=== PATIENT | male | born 1985 | race Caucasian/White ===

== ENCOUNTER 2018-01-10 15:08 | Emergency (ER) | payer SELFPAY ==
[~2018-01-10] VITALS: Ht 172.7 cm; Wt 90.9 kg
[2018-01-10] MEDS ORDERED: METF500T6 PO (15:16)
[2018-01-10 18:18] LABS: BASOPHILS % (AUTO) 0.5 % (0.0-2.0); HEMATOCRIT 40.9 % (41-53); HEMOGLOBIN 14.6 g/dL (13.5-17.5); LYMPHOCYTES # (AUTO) 2.1 K/uL (1.0-4.8); LYMPHOCYTES % (AUTO) 22.2 % (22.0-44.0); MEAN CORPUSCULAR HGB CONC 35.7 G/dL (31.0-37.0); MEAN CORPUSCULAR VOLUME 87 fL (80-100); MONOCYTES # (AUTO) 0.7 K/uL (0.1-1.0); MONOCYTES % (AUTO) 6.9 % (2.0-9.0); NEUTROPHILS # (AUTO) 6.7 K/uL (1.8-7.7); NEUTROPHILS % (AUTO) 69.4 % (40.0-70.0); PLATELET COUNT (AUTO) 330 K/uL (150-450); RED BLOOD CELL COUNT(AUTO) 4.71 MIL/uL (4.50-5.90); RED CELL DISTRIBUTION WIDTH 12.2 % (11.5-14.5)
[2018-01-10 18:28] LABS: ANION GAP 11 mmol/L (8-16); CALCIUM, TOTAL 9.1 mg/dL (8.8-10.5); CARBON DIOXIDE 23 mmol/L (22-29); CHLORIDE 98 mmol/L (98-107); CREATININE 0.91 mg/dL (0.60-1.30); GLOMERULAR FILTR. RATE CALC > 60 mL/min (>60); GLUCOSE,RANDOM 316 mg/dL (70-110); POTASSIUM 3.7 mmol/L (3.5-5.1); SODIUM SERUM 132 mmol/L (136-145); UREA NITROGEN, BLOOD 11 mg/dL (7-18)
[2018-01-10 18:43] LABS: ALANINE AMINOTRANSFERASE 16 U/L (12-78); ALBUMIN 3.6 g/dL (3.4-5.0); ALKALINE PHOSPHATASE 142 U/L (46-116); ASPARTATE AMINOTRANSFERASE 11 U/L (15-37); BILIRUBIN,TOTAL 1.4 mg/dL (0.1-1.0); TOTAL PROTEIN, SERUM 8.7 g/dL (6.4-8.2)
[2018-01-10 19:04] LABS: GLUCOSE,POINT OF CARE 273 MG/DL (70-110)
[2018-01-10] MEDS ORDERED: SULFAMETHOX/TRIMETH DS 800-160 MG/TABLET PO ONE (19:30)
[2018-01-10] MEDS ORDERED: CEPHALEXIN MONOHYDRATE 500 MG CAPSULE PO ONE (19:30)
[2018-01-10] MEDS ORDERED: IBUPROFEN 600 MG TABLET PO ONE (19:30)
[2018-01-10 21:06] VITALS: BP 129/87
== END 2018-01-10 21:15 | disposition home or self-care (01) ==
LOC: EMS 15:11
DX: E11.621 Type 2 diabetes mellitus with foot ulcer (principal); L97.529 Non-pressure chronic ulcer of other part of left foot with unspecified severity
CPT/HCPCS: 99285

== ENCOUNTER 2018-01-22 03:55 | Inpatient (IN) | payer MEDICAID ==
[~2018-01-22] VITALS: Ht 185.4 cm; Wt 81.8 kg
[~2018-01-22 03:55] MED LIST: METF500T6 PO
[2018-01-22 04:09] LABS: GLUCOSE,POINT OF CARE 236 MG/DL (70-110)
[2018-01-22] MEDS ORDERED: VANCOMYCIN HCL 1 GM/D5% WATER 200 ML IV ONE ×2 (04:30→10:30)
[2018-01-22 04:58] LABS: BASOPHILS % (AUTO) 0.7 % (0.0-2.0); EOSINOPHILS % (AUTO) 0.2 % (1.0-6.0); HEMATOCRIT 35.9 % (41-53); HEMOGLOBIN 12.6 g/dL (13.5-17.5); LYMPHOCYTES # (AUTO) 1.7 K/uL (1.0-4.8); LYMPHOCYTES % (AUTO) 9.9 % (22.0-44.0); MEAN CORPUSCULAR HEMOGLOBIN 30.3 pg (26.0-34.0); MEAN CORPUSCULAR HGB CONC 35.1 G/dL (31.0-37.0); MEAN CORPUSCULAR VOLUME 86 fL (80-100); MONOCYTES # (AUTO) 1.3 K/uL (0.1-1.0); MONOCYTES % (AUTO) 7.6 % (2.0-9.0); NEUTROPHILS # (AUTO) 14.1 K/uL (1.8-7.7); NEUTROPHILS % (AUTO) 81.6 % (40.0-70.0); PLATELET COUNT (AUTO) 409 K/uL (150-450); RED BLOOD CELL COUNT(AUTO) 4.16 MIL/uL (4.50-5.90)
[2018-01-22 05:09] LABS: ANION GAP 15 mmol/L (8-16); CARBON DIOXIDE 19 mmol/L (22-29); CHLORIDE 97 mmol/L (98-107); CREATININE 0.81 mg/dL (0.60-1.30); GLOMERULAR FILTR. RATE CALC > 60 mL/min (>60); GLUCOSE,RANDOM 270 mg/dL (70-110); POTASSIUM 3.4 mmol/L (3.5-5.1); SODIUM SERUM 131 mmol/L (136-145); UREA NITROGEN, BLOOD 13 mg/dL (7-18)
[2018-01-22] MEDS ORDERED: ACETAMINOPHEN 325 MG TABLET PO PRN ×2 (05:15→09:45)
[2018-01-22] MEDS ORDERED: 0.9% SODIUM CHLORIDE 10 ML SYRINGE IVP PRN ×2 (05:15→09:45)
[2018-01-22] MEDS ORDERED: ONDANSETRON HCL 4 MG/2 ML VIAL IVP PRN ×2 (05:15→09:45)
[2018-01-22 05:17] LABS: LACTIC ACID 1.7 mmol/L (0.4-2.0)
[2018-01-22 05:23] LABS: ALANINE AMINOTRANSFERASE 17 U/L (12-78); ALBUMIN 2.5 g/dL (3.4-5.0); ALKALINE PHOSPHATASE 163 U/L (46-116); ASPARTATE AMINOTRANSFERASE 21 U/L (15-37); BILIRUBIN,TOTAL 0.8 mg/dL (0.1-1.0); TOTAL PROTEIN, SERUM 8.2 g/dL (6.4-8.2)
[2018-01-22 07:23] VITALS: BP 124/82
[2018-01-22] MEDS ORDERED: RINGERS SOLUTION,LACTATED 1,000 ML IV ONE ×2 (09:04→10:00)
[2018-01-22] MEDS: HEPARIN SODIUM,PORCINE 5,000 UNITS/ML VIAL SQ SCH ×3 (09:45→23:10)
[2018-01-22] MEDS ORDERED: GLUCAGON,HUMAN RECOMBINANT 1 MG VIAL IM PRN (09:45)
[2018-01-22] MEDS: PANTOPRAZOLE SODIUM 40 MG/VIAL IVP SCH (09:45)
[2018-01-22] MEDS ORDERED: OxyCODONE HCL/ACETAMINOPHEN 5-325 MG TABLET PO PRN (09:45)
[2018-01-22] MEDS ORDERED: ZOLPIDEM TARTRATE 5 MG TABLET PO PRN (09:45)
[2018-01-22] MEDS: DOCUSATE SODIUM 100 MG CAPSULE PO SCH ×2 (09:45→19:40)
[2018-01-22] MEDS ORDERED: VANCOMYCIN HCL 1.5 GM in DEXTROSE 5%-WATER 250 ML IV ONE (10:00)
[2018-01-22] MEDS ORDERED: BUPIVACAINE HCL/PF 0.5% 30 ML VIAL ONE (10:12)
[2018-01-22] MEDS ORDERED: LIDOCAINE HCL/PF 1% 2 ML VIAL ONE (10:13)
[2018-01-22] MEDS ORDERED: SODIUM CL IRRIG SOLN BAG 3,000 ML IRRIG ONE (10:13)
[2018-01-22] MEDS ORDERED: BACITRACIN 50,000 UNITS/VIAL ONE (10:14)
[2018-01-22 10:18] LABS: C-REACTIVE PROTEIN QUANT 21.64 mg/dL (0.00-0.30); CHOL/HDL RATIO 4.1 (4.2-7.3); CHOLESTEROL 123 mg/dL (131-200); HDL CHOLESTEROL 30 mg/dL (40-60); LDL CHOL (CALC.) 73 mg/dL (0-130); TRIGLYCERIDES 98 mg/dL (15-150)
[2018-01-22 10:24] LABS: HEMOGLOBIN A1C 9.7 % (4.5-6.2)
[2018-01-22 10:49] LABS: ERYTHROCYTE SEDIMENTATION RATE 115 MM/HR (0-15)
[2018-01-22] MEDS ORDERED: MIDAZOLAM HCL 2 MG/2 ML VIAL IVP ONE (12:00)
[2018-01-22] MEDS ORDERED: LIDOCAINE HCL/PF 2% 5 ML VIAL INJ ONE (12:00)
[2018-01-22] MEDS ORDERED: PROPOFOL 1% 20 ML VIAL IVP ONE (12:00)
[2018-01-22] MEDS ORDERED: THROMBIN, BOVINE 20000 UNITS/VIAL POWDER TP ONE (12:00)
[2018-01-22] MEDS ORDERED: HYDROmorphone 2 MG/ML SYRINGE IVP PRN (12:00)
[2018-01-22] MEDS ORDERED: GELATIN SPONGE,ABSORBABLE 50 MM TP ONE (12:00)
[2018-01-22] MEDS ORDERED: FentaNYL CITRATE-PF 100 MCG/2 ML VIAL IVP PRN (12:00)
[2018-01-22] MEDS ORDERED: MEPERIDINE HCL/PF 25 MG/0.5 ML AMP IVP PRN (12:00)
[2018-01-22] MEDS ORDERED: KETOROLAC TROMETHAMINE 60 MG/2 ML VIAL IM ONE (12:00)
[2018-01-22] MEDS ORDERED: OxyCODONE HCL/ACETAMINOPHEN 10-325 MG TABLET PO PRN (12:00)
[2018-01-22] MEDS ORDERED: SODIUM CHLORIDE 0.9% 500 ML IV ONE (13:48)
[2018-01-22] MEDS ORDERED: CYCLOBENZAPRINE HCL 10 MG TABLET PO PRN (14:00)
[2018-01-22] MEDS: CefTRIAXone SODIUM 1 GM in DEXTROSE 5%-WATER 10 ML IV SCH (14:34)
[2018-01-22 15:34] VITALS: BP 109/64
[2018-01-22] MEDS ORDERED: VANCOMYCIN HCL 750 MG in DEXTROSE 5%-WATER 250 ML IV ONE (17:00)
[2018-01-22] MEDS: INSULIN LISPRO 100 UNITS/ML SQ PRN ×2 (17:21→20:43)
[2018-01-22] MEDS: ACETAMINOPHEN 1000 MG/ISO-OSM 100 ML IV SCH ×2 (19:35→23:02)
[2018-01-22] MEDS: KETOROLAC TROMETHAMINE 15 MG/ML VIAL IVP SCH ×2 (19:40→23:42)
[2018-01-22 19:57] VITALS: BP 123/68
[2018-01-22 21:43] LABS: GLUCOMETER DEV NAME(LOC) 6N 2D; GLUCOSE,POINT OF CARE 274 MG/DL (70-110)
[2018-01-22 21:43] LABS: GLUCOMETER DEV NAME(LOC) 6N 2D; GLUCOSE,POINT OF CARE 177 MG/DL (70-110)
[2018-01-22] MEDS: VANCOMYCIN HCL 1.5 GM in DEXTROSE 5%-WATER 250 ML IV SCH (23:42)
[2018-01-22 23:57] VITALS: BP 116/63
[2018-01-23 04:10] VITALS: BP 115/72
[2018-01-23] MEDS: ACETAMINOPHEN 1000 MG/ISO-OSM 100 ML IV SCH ×2 (05:16→11:55)
[2018-01-23] MEDS: KETOROLAC TROMETHAMINE 15 MG/ML VIAL IVP SCH ×3 (05:16→18:07)
[2018-01-23 05:54] LABS: BASOPHILS % (AUTO) 0.5 % (0.0-2.0); EOSINOPHILS % (AUTO) 2.7 % (1.0-6.0); HEMATOCRIT 34.7 % (41-53); HEMOGLOBIN 11.9 g/dL (13.5-17.5); LYMPHOCYTES # (AUTO) 1.4 K/uL (1.0-4.8); LYMPHOCYTES % (AUTO) 11.7 % (22.0-44.0); MEAN CORPUSCULAR HEMOGLOBIN 30.2 pg (26.0-34.0); MEAN CORPUSCULAR HGB CONC 34.2 G/dL (31.0-37.0); MEAN CORPUSCULAR VOLUME 88 fL (80-100); MONOCYTES # (AUTO) 0.9 K/uL (0.1-1.0); MONOCYTES % (AUTO) 7.9 % (2.0-9.0); NEUTROPHILS % (AUTO) 77.2 % (40.0-70.0); PLATELET COUNT (AUTO) 363 K/uL (150-450); RED BLOOD CELL COUNT(AUTO) 3.93 MIL/uL (4.50-5.90); RED CELL DISTRIBUTION WIDTH 11.8 % (11.5-14.5)
[2018-01-23] MEDS: INSULIN LISPRO 100 UNITS/ML SQ PRN ×4 (05:58→21:39)
[2018-01-23 06:16] LABS: ANION GAP 9 mmol/L (8-16); CALCIUM, TOTAL 8.8 mg/dL (8.8-10.5); CARBON DIOXIDE 25 mmol/L (22-29); CHLORIDE 100 mmol/L (98-107); GLOMERULAR FILTR. RATE CALC > 60 mL/min (>60); GLUCOSE,RANDOM 194 mg/dL (70-110); POTASSIUM 3.6 mmol/L (3.5-5.1); SODIUM SERUM 134 mmol/L (136-145); UREA NITROGEN, BLOOD 17 mg/dL (7-18)
[2018-01-23] MEDS: VANCOMYCIN HCL 1.5 GM in DEXTROSE 5%-WATER 250 ML IV SCH ×3 (06:39→22:59)
[2018-01-23 07:03] LABS: GLUCOMETER DEV NAME(LOC) 6N 2D; GLUCOSE,POINT OF CARE 201 MG/DL (70-110)
[2018-01-23 07:41] VITALS: BP 122/69
[2018-01-23] MEDS: PANTOPRAZOLE SODIUM 40 MG/VIAL IVP SCH (08:18)
[2018-01-23] MEDS: DOCUSATE SODIUM 100 MG CAPSULE PO SCH ×2 (08:18→19:57)
[2018-01-23] MEDS: HEPARIN SODIUM,PORCINE 5,000 UNITS/ML VIAL SQ SCH ×2 (08:18→18:07)
[2018-01-23 11:32] VITALS: BP 131/79
[2018-01-23 11:54] LABS: GLUCOMETER DEV NAME(LOC) 6N 1E; GLUCOSE,POINT OF CARE 242 MG/DL (70-110)
[2018-01-23] MEDS: CefTRIAXone SODIUM 1 GM in DEXTROSE 5%-WATER 10 ML IV SCH (15:18)
[2018-01-23 15:43] VITALS: BP 126/77
[2018-01-23 19:00] VITALS: BP 123/76
[2018-01-23 19:34] LABS: GLUCOMETER DEV NAME(LOC) 6N 2D; GLUCOSE,POINT OF CARE 200 MG/DL (70-110)
[2018-01-23] MEDS: ACETAMINOPHEN 325 MG TABLET PO PRN (19:59)
[2018-01-23 20:58] LABS: GLUCOMETER DEV NAME(LOC) 6N 2D; GLUCOSE,POINT OF CARE 305 MG/DL (70-110)
[2018-01-23 23:49] VITALS: BP 138/83
[2018-01-24] MEDS: KETOROLAC TROMETHAMINE 15 MG/ML VIAL IVP SCH ×5 (00:19→23:36)
[2018-01-24] MEDS: HEPARIN SODIUM,PORCINE 5,000 UNITS/ML VIAL SQ SCH ×4 (00:20→23:36)
[2018-01-24 04:00] VITALS: BP 129/79
[2018-01-24] MEDS: VANCOMYCIN HCL 1.5 GM in DEXTROSE 5%-WATER 250 ML IV SCH ×3 (06:06→22:32)
[2018-01-24] MEDS: INSULIN LISPRO 100 UNITS/ML SQ PRN ×4 (06:07→21:04)
[2018-01-24 06:34] LABS: GLUCOMETER DEV NAME(LOC) 6N 1E; GLUCOSE,POINT OF CARE 189 MG/DL (70-110)
[2018-01-24 07:20] LABS: ANION GAP 9 mmol/L (8-16); CALCIUM, TOTAL 8.4 mg/dL (8.8-10.5); CARBON DIOXIDE 26 mmol/L (22-29); CHLORIDE 101 mmol/L (98-107); GLOMERULAR FILTR. RATE CALC > 60 mL/min (>60); GLUCOSE,RANDOM 207 mg/dL (70-110); POTASSIUM 3.9 mmol/L (3.5-5.1); SODIUM SERUM 136 mmol/L (136-145); UREA NITROGEN, BLOOD 9 mg/dL (7-18); VANCOMYCIN,RANDOM 14.9 mcg/mL (25.0-50.0)
[2018-01-24 07:30] VITALS: BP 127/78
[2018-01-24] MEDS ORDERED: SODIUM CHLORIDE 0.9% 500 ML IV ONE (08:27)
[2018-01-24] MEDS: DOCUSATE SODIUM 100 MG CAPSULE PO SCH ×2 (08:33→19:57)
[2018-01-24] MEDS: PANTOPRAZOLE SODIUM 40 MG/VIAL IVP SCH (08:33)
[2018-01-24 11:50] VITALS: BP 132/78
[2018-01-24 13:23] LABS: GLUCOMETER DEV NAME(LOC) 6N 2D; GLUCOSE,POINT OF CARE 199 MG/DL (70-110)
[2018-01-24] MEDS: CefTRIAXone SODIUM 1 GM in DEXTROSE 5%-WATER 10 ML IV SCH (14:26)
[2018-01-24 15:59] VITALS: BP 128/77
[2018-01-24 17:49] LABS: GLUCOMETER DEV NAME(LOC) 6N 2D; GLUCOSE,POINT OF CARE 236 MG/DL (70-110)
[2018-01-24 19:47] VITALS: BP 135/75
[2018-01-24 23:19] VITALS: BP 143/83
[2018-01-25 00:24] LABS: GLUCOMETER DEV NAME(LOC) 6N 2D; GLUCOSE,POINT OF CARE 197 MG/DL (70-110)
[2018-01-25 04:37] VITALS: BP 138/80
[2018-01-25] MEDS: KETOROLAC TROMETHAMINE 15 MG/ML VIAL IVP SCH ×3 (05:42→17:16)
[2018-01-25] MEDS: INSULIN LISPRO 100 UNITS/ML SQ PRN ×4 (05:43→20:22)
[2018-01-25] MEDS: VANCOMYCIN HCL 1.5 GM in DEXTROSE 5%-WATER 250 ML IV SCH ×2 (06:36→14:38)
[2018-01-25 06:39] LABS: GLUCOMETER DEV NAME(LOC) 6N 2D; GLUCOSE,POINT OF CARE 168 MG/DL (70-110)
[2018-01-25 06:50] LABS: BASOPHILS % (AUTO) 0.5 % (0.0-2.0); EOSINOPHILS % (AUTO) 4.3 % (1.0-6.0); HEMATOCRIT 34.3 % (41-53); HEMOGLOBIN 11.8 g/dL (13.5-17.5); LYMPHOCYTES # (AUTO) 1.6 K/uL (1.0-4.8); LYMPHOCYTES % (AUTO) 18.6 % (22.0-44.0); MEAN CORPUSCULAR HEMOGLOBIN 30.2 pg (26.0-34.0); MEAN CORPUSCULAR HGB CONC 34.5 G/dL (31.0-37.0); MEAN CORPUSCULAR VOLUME 88 fL (80-100); MONOCYTES # (AUTO) 0.8 K/uL (0.1-1.0); MONOCYTES % (AUTO) 8.8 % (2.0-9.0); NEUTROPHILS % (AUTO) 67.8 % (40.0-70.0); PLATELET COUNT (AUTO) 419 K/uL (150-450); RED BLOOD CELL COUNT(AUTO) 3.92 MIL/uL (4.50-5.90); RED CELL DISTRIBUTION WIDTH 11.9 % (11.5-14.5)
[2018-01-25 07:00] LABS: VANCOMYCIN,RANDOM 13.4 mcg/mL (25.0-50.0)
[2018-01-25 07:10] VITALS: BP 122/67
[2018-01-25] MEDS: DOCUSATE SODIUM 100 MG CAPSULE PO SCH ×2 (08:28→20:22)
[2018-01-25] MEDS: HEPARIN SODIUM,PORCINE 5,000 UNITS/ML VIAL SQ SCH ×2 (08:28→15:25)
[2018-01-25] MEDS: PANTOPRAZOLE SODIUM 40 MG/VIAL IVP SCH (08:28)
[2018-01-25 09:18] LABS: ANION GAP 10 mmol/L (8-16); CALCIUM, TOTAL 8.7 mg/dL (8.8-10.5); CARBON DIOXIDE 25 mmol/L (22-29); CHLORIDE 100 mmol/L (98-107); CREATININE 0.64 mg/dL (0.60-1.30); GLOMERULAR FILTR. RATE CALC > 60 mL/min (>60); GLUCOSE,RANDOM 169 mg/dL (70-110); SODIUM SERUM 135 mmol/L (136-145); UREA NITROGEN, BLOOD 10 mg/dL (7-18)
[2018-01-25] MEDS ORDERED: SODIUM CHLORIDE 0.9% 500 ML IV ONE (10:35)
[2018-01-25] MEDS ORDERED: SODIUM CL IRRIG SOLN BOTTLE 250 ML IRRIG ONE (10:35)
[2018-01-25 11:39] VITALS: BP 143/83
[2018-01-25 11:58] LABS: GLUCOMETER DEV NAME(LOC) 6N 1E; GLUCOSE,POINT OF CARE 231 MG/DL (70-110)
[2018-01-25] MEDS: CefTRIAXone SODIUM 1 GM in DEXTROSE 5%-WATER 10 ML IV SCH (14:38)
[2018-01-25 15:20] VITALS: BP 147/88
[2018-01-25] MEDS: ACETAMINOPHEN 325 MG TABLET PO PRN (15:25)
[2018-01-25 19:57] VITALS: BP 131/74
[2018-01-25 23:15] VITALS: BP 133/82
[2018-01-25 23:43] LABS: GLUCOMETER DEV NAME(LOC) 6N 2D; GLUCOSE,POINT OF CARE 229 MG/DL (70-110)
[2018-01-25 23:44] LABS: GLUCOMETER DEV NAME(LOC) 6N 2D; GLUCOSE,POINT OF CARE 230 MG/DL (70-110)
[2018-01-26] MEDS: HEPARIN SODIUM,PORCINE 5,000 UNITS/ML VIAL SQ SCH ×4 (00:09→23:59)
[2018-01-26] MEDS: KETOROLAC TROMETHAMINE 15 MG/ML VIAL IVP SCH ×2 (00:10→06:16)
[2018-01-26] MEDS: VANCOMYCIN HCL 1.5 GM in DEXTROSE 5%-WATER 250 ML IV SCH ×4 (00:10→22:56)
[2018-01-26 05:00] VITALS: BP 121/70
[2018-01-26] MEDS: INSULIN LISPRO 100 UNITS/ML SQ PRN ×4 (06:17→20:37)
[2018-01-26 06:33] LABS: ANION GAP 5 mmol/L (8-16); CALCIUM, TOTAL 8.5 mg/dL (8.8-10.5); CARBON DIOXIDE 29 mmol/L (22-29); CHLORIDE 100 mmol/L (98-107); CREATININE 0.72 mg/dL (0.60-1.30); GLOMERULAR FILTR. RATE CALC > 60 mL/min (>60); GLUCOSE,RANDOM 219 mg/dL (70-110); POTASSIUM 4.3 mmol/L (3.5-5.1); SODIUM SERUM 134 mmol/L (136-145); UREA NITROGEN, BLOOD 8 mg/dL (7-18)
[2018-01-26 06:40] LABS: GLUCOMETER DEV NAME(LOC) 6N 2D; GLUCOSE,POINT OF CARE 203 MG/DL (70-110)
[2018-01-26] MEDS: LEVOFLOXACIN 250 MG TABLET PO SCH (08:05)
[2018-01-26] MEDS: PANTOPRAZOLE SODIUM 40 MG/VIAL IVP SCH (08:05)
[2018-01-26] MEDS: DOCUSATE SODIUM 100 MG CAPSULE PO SCH ×2 (08:05→19:44)
[2018-01-26 08:07] VITALS: BP 122/70
[2018-01-26 11:56] VITALS: BP 127/75
[2018-01-26 16:00] VITALS: BP 145/84
[2018-01-26 18:54] LABS: GLUCOMETER DEV NAME(LOC) 6N 1E; GLUCOSE,POINT OF CARE 222 MG/DL (70-110)
[2018-01-26 19:48] VITALS: BP 133/80
[2018-01-26 20:10] LABS: GLUCOMETER DEV NAME(LOC) 6N 2D; GLUCOSE,POINT OF CARE 225 MG/DL (70-110)
[2018-01-26 20:40] LABS: GLUCOMETER DEV NAME(LOC) 6N 2D; GLUCOSE,POINT OF CARE 271 MG/DL (70-110)
[2018-01-26] MEDS ORDERED: SODIUM CHLORIDE 0.9% IRRIG BTL 1,000 ML IRRIG ONE (22:47)
[2018-01-26 23:33] VITALS: BP 128/73
[2018-01-27 04:33] VITALS: BP 126/67
[2018-01-27] MEDS: INSULIN LISPRO 100 UNITS/ML SQ PRN ×4 (06:33→21:46)
[2018-01-27] MEDS: VANCOMYCIN HCL 1.5 GM in DEXTROSE 5%-WATER 250 ML IV SCH ×3 (06:33→22:23)
[2018-01-27 07:13] LABS: ANION GAP 6 mmol/L (8-16); CALCIUM, TOTAL 8.9 mg/dL (8.8-10.5); CARBON DIOXIDE 29 mmol/L (22-29); CHLORIDE 99 mmol/L (98-107); CREATININE 0.82 mg/dL (0.60-1.30); GLOMERULAR FILTR. RATE CALC > 60 mL/min (>60); GLUCOSE,RANDOM 238 mg/dL (70-110); POTASSIUM 4.4 mmol/L (3.5-5.1); SODIUM SERUM 134 mmol/L (136-145); UREA NITROGEN, BLOOD 7 mg/dL (7-18)
[2018-01-27 07:36] LABS: GLUCOMETER DEV NAME(LOC) 6N 1E; GLUCOSE,POINT OF CARE 221 MG/DL (70-110)
[2018-01-27 08:17] VITALS: BP 119/78
[2018-01-27] MEDS: PANTOPRAZOLE SODIUM 40 MG/VIAL IVP SCH (08:40)
[2018-01-27] MEDS: HEPARIN SODIUM,PORCINE 5,000 UNITS/ML VIAL SQ SCH ×3 (08:40→23:49)
[2018-01-27] MEDS: DOCUSATE SODIUM 100 MG CAPSULE PO SCH ×2 (08:41→20:52)
[2018-01-27] MEDS: LEVOFLOXACIN 250 MG TABLET PO SCH (08:41)
[2018-01-27] MEDS ORDERED: SODIUM CHLORIDE 0.9% 250 ML IV ONE (08:47)
[2018-01-27 11:19] VITALS: BP 135/76
[2018-01-27] MEDS: ACETAMINOPHEN 325 MG TABLET PO PRN ×2 (11:21→20:55)
[2018-01-27 15:15] VITALS: BP 118/69
[2018-01-27 17:09] LABS: GLUCOMETER DEV NAME(LOC) 6N 2D; GLUCOSE,POINT OF CARE 228 MG/DL (70-110)
[2018-01-27 19:22] VITALS: BP 121/68
[2018-01-28 00:04] VITALS: BP 126/76
[2018-01-28 01:09] LABS: GLUCOMETER DEV NAME(LOC) 6N 2D; GLUCOSE,POINT OF CARE 259 MG/DL (70-110)
[2018-01-28 01:09] LABS: GLUCOMETER DEV NAME(LOC) 6N 2D; GLUCOSE,POINT OF CARE 257 MG/DL (70-110)
[2018-01-28 04:05] VITALS: BP 122/72
[2018-01-28] MEDS: VANCOMYCIN HCL 1.5 GM in DEXTROSE 5%-WATER 250 ML IV SCH ×3 (06:08→23:56)
[2018-01-28] MEDS: INSULIN LISPRO 100 UNITS/ML SQ PRN ×4 (06:13→20:22)
[2018-01-28 06:23] LABS: ANION GAP 4 mmol/L (8-16); CALCIUM, TOTAL 8.9 mg/dL (8.8-10.5); CARBON DIOXIDE 31 mmol/L (22-29); CHLORIDE 99 mmol/L (98-107); CREATININE 0.88 mg/dL (0.60-1.30); GLOMERULAR FILTR. RATE CALC > 60 mL/min (>60); GLUCOSE,RANDOM 243 mg/dL (70-110); POTASSIUM 4.5 mmol/L (3.5-5.1); SODIUM SERUM 134 mmol/L (136-145); UREA NITROGEN, BLOOD 9 mg/dL (7-18)
[2018-01-28 07:34] LABS: GLUCOMETER DEV NAME(LOC) 6N 1E; GLUCOSE,POINT OF CARE 226 MG/DL (70-110)
[2018-01-28 08:02] VITALS: BP 126/75
[2018-01-28] MEDS: HEPARIN SODIUM,PORCINE 5,000 UNITS/ML VIAL SQ SCH (08:11)
[2018-01-28] MEDS: DOCUSATE SODIUM 100 MG CAPSULE PO SCH ×2 (08:12→20:16)
[2018-01-28] MEDS: LEVOFLOXACIN 250 MG TABLET PO SCH (08:12)
[2018-01-28] MEDS: PANTOPRAZOLE SODIUM 40 MG/VIAL IVP SCH (08:12)
[2018-01-28 11:53] VITALS: BP 121/76
[2018-01-28 16:14] VITALS: BP 128/94
[2018-01-28 16:44] LABS: GLUCOMETER DEV NAME(LOC) 6N 2D; GLUCOSE,POINT OF CARE 266 MG/DL (70-110)
[2018-01-28] MEDS ORDERED: SODIUM CL IRRIG SOLN BOTTLE 250 ML IRRIG ONE (17:48)
[2018-01-28] MEDS: ACETAMINOPHEN 325 MG TABLET PO PRN (20:19)
[2018-01-28 20:23] VITALS: BP 125/72
[2018-01-28 20:59] LABS: GLUCOMETER DEV NAME(LOC) 6N 2D; GLUCOSE,POINT OF CARE 253 MG/DL (70-110)
[2018-01-29] VITALS (7 sets, daily range): BP systolic 102–153; BP diastolic 64–83
[2018-01-29 01:39] LABS: GLUCOMETER DEV NAME(LOC) 6N 1E; GLUCOSE,POINT OF CARE 306 MG/DL (70-110)
[2018-01-29] MEDS: VANCOMYCIN HCL 1.5 GM in DEXTROSE 5%-WATER 250 ML IV SCH ×3 (06:29→23:23)
[2018-01-29] MEDS: INSULIN LISPRO 100 UNITS/ML SQ PRN ×4 (06:31→22:11)
[2018-01-29 06:57] LABS: ANION GAP 9 mmol/L (8-16); CALCIUM, TOTAL 8.8 mg/dL (8.8-10.5); CARBON DIOXIDE 26 mmol/L (22-29); CHLORIDE 97 mmol/L (98-107); GLOMERULAR FILTR. RATE CALC > 60 mL/min (>60); GLUCOSE,RANDOM 267 mg/dL (70-110); POTASSIUM 4.1 mmol/L (3.5-5.1); SODIUM SERUM 132 mmol/L (136-145); UREA NITROGEN, BLOOD 16 mg/dL (7-18)
[2018-01-29 07:15] LABS: GLUCOMETER DEV NAME(LOC) 6N 2D; GLUCOSE,POINT OF CARE 224 MG/DL (70-110)
[2018-01-29] MEDS: DOCUSATE SODIUM 100 MG CAPSULE PO SCH ×2 (08:41→21:00)
[2018-01-29] MEDS: PANTOPRAZOLE SODIUM 40 MG/VIAL IVP SCH (08:41)
[2018-01-29] MEDS: LEVOFLOXACIN 250 MG TABLET PO SCH (08:41)
[2018-01-29 14:15] LABS: GLUCOMETER DEV NAME(LOC) 6N 2D; GLUCOSE,POINT OF CARE 279 MG/DL (70-110)
[2018-01-29] MEDS ORDERED: SODIUM CHLORIDE 0.9% 500 ML IV ONE (15:17)
[2018-01-29 23:43] LABS: GLUCOMETER DEV NAME(LOC) 6N 1E; GLUCOSE,POINT OF CARE 270 MG/DL (70-110)
[2018-01-29 23:43] LABS: GLUCOMETER DEV NAME(LOC) 6N 1E; GLUCOSE,POINT OF CARE 333 MG/DL (70-110)
[2018-01-30 04:00] VITALS: BP 106/63
[2018-01-30] MEDS: INSULIN LISPRO 100 UNITS/ML SQ PRN ×4 (05:54→21:28)
[2018-01-30] MEDS: VANCOMYCIN HCL 1.5 GM in DEXTROSE 5%-WATER 250 ML IV SCH ×2 (05:55→16:27)
[2018-01-30 07:24] LABS: GLUCOMETER DEV NAME(LOC) 6N 1E; GLUCOSE,POINT OF CARE 239 MG/DL (70-110)
[2018-01-30 07:36] LABS: ANION GAP 8 mmol/L (8-16); CALCIUM, TOTAL 8.8 mg/dL (8.8-10.5); CARBON DIOXIDE 26 mmol/L (22-29); CHLORIDE 97 mmol/L (98-107); CREATININE 0.85 mg/dL (0.60-1.30); GLOMERULAR FILTR. RATE CALC > 60 mL/min (>60); GLUCOSE,RANDOM 291 mg/dL (70-110); POTASSIUM 4.4 mmol/L (3.5-5.1); SODIUM SERUM 131 mmol/L (136-145); UREA NITROGEN, BLOOD 13 mg/dL (7-18); VANCOMYCIN,RANDOM 26.5 mcg/mL (25.0-50.0)
[2018-01-30 08:14] VITALS: BP 132/75
[2018-01-30] MEDS: PANTOPRAZOLE SODIUM 40 MG/VIAL IVP SCH (08:54)
[2018-01-30] MEDS: DOCUSATE SODIUM 100 MG CAPSULE PO SCH ×2 (08:54→21:00)
[2018-01-30] MEDS: LEVOFLOXACIN 250 MG TABLET PO SCH (08:55)
[2018-01-30 11:57] VITALS: BP 115/76
[2018-01-30 11:58] LABS: GLUCOMETER DEV NAME(LOC) 6N 1E; GLUCOSE,POINT OF CARE 271 MG/DL (70-110)
[2018-01-30] MEDS ORDERED: LEVO250 PO (14:14)
[2018-01-30 15:12] VITALS: BP 126/94
[2018-01-30] MEDS ORDERED: SODIUM CHLORIDE 0.9% IRRIG BTL 1,000 ML IRRIG ONE (15:16)
[2018-01-30 19:40] VITALS: BP 111/66
[2018-01-30 19:48] LABS: GLUCOMETER DEV NAME(LOC) 6N 1E; GLUCOSE,POINT OF CARE 256 MG/DL (70-110)
[2018-01-31 00:14] VITALS: BP 123/79
[2018-01-31] MEDS: VANCOMYCIN HCL 1.5 GM in DEXTROSE 5%-WATER 250 ML IV SCH ×3 (00:15→16:26)
[2018-01-31 04:37] VITALS: BP 106/62
[2018-01-31] MEDS: INSULIN LISPRO 100 UNITS/ML SQ PRN ×4 (05:28→22:25)
[2018-01-31 06:30] LABS: ANION GAP 7 mmol/L (8-16); CALCIUM, TOTAL 8.8 mg/dL (8.8-10.5); CARBON DIOXIDE 27 mmol/L (22-29); CHLORIDE 97 mmol/L (98-107); CREATININE 0.92 mg/dL (0.60-1.30); GLOMERULAR FILTR. RATE CALC > 60 mL/min (>60); GLUCOSE,RANDOM 298 mg/dL (70-110); POTASSIUM 4.2 mmol/L (3.5-5.1); SODIUM SERUM 131 mmol/L (136-145); UREA NITROGEN, BLOOD 12 mg/dL (7-18)
[2018-01-31 07:10] VITALS: BP 106/62
[2018-01-31] MEDS: PANTOPRAZOLE SODIUM 40 MG/VIAL IVP SCH (08:54)
[2018-01-31] MEDS: LEVOFLOXACIN 250 MG TABLET PO SCH (08:54)
[2018-01-31] MEDS: DOCUSATE SODIUM 100 MG CAPSULE PO SCH ×2 (08:55→21:00)
[2018-01-31 11:44] VITALS: BP 110/65
[2018-01-31 12:28] LABS: GLUCOMETER DEV NAME(LOC) 6N 2D; GLUCOSE,POINT OF CARE 346 MG/DL (70-110)
[2018-01-31 12:29] LABS: GLUCOMETER DEV NAME(LOC) 6N 2D; GLUCOSE,POINT OF CARE 266 MG/DL (70-110)
[2018-01-31 15:18] LABS: GLUCOMETER DEV NAME(LOC) 6N 1E; GLUCOSE,POINT OF CARE 297 MG/DL (70-110)
[2018-01-31 16:00] VITALS: BP 148/76
[2018-01-31 19:00] VITALS: BP 147/90
[2018-01-31 19:48] LABS: GLUCOMETER DEV NAME(LOC) 6N 1E; GLUCOSE,POINT OF CARE 273 MG/DL (70-110)
[2018-02-01 00:05] VITALS: BP 138/82
[2018-02-01 00:14] LABS: GLUCOMETER DEV NAME(LOC) 6N 2D; GLUCOSE,POINT OF CARE 228 MG/DL (70-110)
[2018-02-01] MEDS: VANCOMYCIN HCL 1.5 GM in DEXTROSE 5%-WATER 250 ML IV SCH ×3 (00:21→15:00)
[2018-02-01 04:00] VITALS: BP 114/63
[2018-02-01] MEDS: INSULIN LISPRO 100 UNITS/ML SQ PRN ×2 (05:45→12:09)
[2018-02-01 05:59] LABS: GLUCOMETER DEV NAME(LOC) 6N 2D; GLUCOSE,POINT OF CARE 284 MG/DL (70-110)
[2018-02-01 08:16] VITALS: BP 121/61
[2018-02-01 08:17] LABS: ANION GAP 7 mmol/L (8-16); CALCIUM, TOTAL 8.8 mg/dL (8.8-10.5); CARBON DIOXIDE 27 mmol/L (22-29); CHLORIDE 96 mmol/L (98-107); GLOMERULAR FILTR. RATE CALC > 60 mL/min (>60); GLUCOSE,RANDOM 297 mg/dL (70-110); POTASSIUM 4.1 mmol/L (3.5-5.1); SODIUM SERUM 130 mmol/L (136-145); UREA NITROGEN, BLOOD 15 mg/dL (7-18)
[2018-02-01] MEDS: LEVOFLOXACIN 250 MG TABLET PO SCH (08:59)
[2018-02-01] MEDS: PANTOPRAZOLE SODIUM 40 MG/VIAL IVP SCH (09:00)
[2018-02-01] MEDS: DOCUSATE SODIUM 100 MG CAPSULE PO SCH (09:00)
[2018-02-01 11:23] VITALS: BP 118/70
[2018-02-01] MEDS ORDERED: SODIUM CL IRRIG SOLN BOTTLE 250 ML IRRIG ONE (11:48)
[2018-02-01 15:14] VITALS: BP 127/88
[2018-02-01 19:19] LABS: GLUCOMETER DEV NAME(LOC) 6N 2D; GLUCOSE,POINT OF CARE 290 MG/DL (70-110)
== END 2018-02-01 16:55 | disposition home or self-care (01) | DRG 710 ==
LOC: EMS 03:56 → 6N 05:36
PROVIDERS: ADMIT Internal Medicine; ATTEND Internal Medicine
PROC: 0Y6U0Z0 Detachment at Left 3rd Toe, Complete, Open Approach (ICD-10-PCS; principal; 2018-01-22 11:00)
DX: A41.9 Sepsis, unspecified organism (principal); I96 Gangrene, not elsewhere classified; E11.621 Type 2 diabetes mellitus with foot ulcer; E11.65 Type 2 diabetes mellitus with hyperglycemia; L02.612 Cutaneous abscess of left foot; L97.529 Non-pressure chronic ulcer of other part of left foot with unspecified severity; Z89.422 Acquired absence of other left toe(s); Z79.4 Long term (current) use of insulin; Z79.899 Other long term (current) drug therapy
CPT/HCPCS: 83036; 83605; 83735; 85651; 86140; 87040; 87070; 87081; 87205; 88304; 88305; 88311; 93925; 93971; 96365; 96366; 97163; 97530; 99285; C9113; J0131; J0696; J1644; J1885; J2250; J2704; J3370; J3490; J7040; J7050; J7060; J7120